=== PATIENT | male | born 1975 | race Two or more races ===

== ENCOUNTER 2020-01-23 05:40 | Day surgery (SDC) | payer OTHER | END 2020-01-23 11:10 | disposition home or self-care (01) | LOC: AMB-ENDOS 05:40 | PROVIDERS: ATTEND Surgery | DX: D13.1 Benign neoplasm of stomach (principal); Z20.828 Contact with and (suspected) exposure to other viral communicable diseases; K44.9 Diaphragmatic hernia without obstruction or gangrene ==